=== PATIENT | female | born 1950 | race Caucasian/White ===

== ENCOUNTER 2017-08-15 14:09 | Emergency (ER) | payer OTHER ==
[2017-08-15] MEDS ORDERED: TYLENOL 325 MG PO ONE (14:47)
[2017-08-15] MEDS ORDERED: TYLENOL 325 MG ONE (14:51)
--- NOTE | 2017-08-15 14:53 | ERPHSYRPT ---
- History of Present Illness Time Seen by Provider: 08/15/17 14:40 Source: patient Exam Limitations: no limitations Patient Subjective Stated Complaint: Pt was at work and fell from standing height while doing dishes, struck in the head with a plate rack full of plates in the kitchen. C/O pain left side of head and right leg. Also of pain in bilat shoulders. Rates pain 6/10. Denies LOC. Triage Nursing Assessment: Pt alert, oriented, answers all questions appropriately. Skin pink, warm, dry. Resps non-labored. Pt able to stand and ambulate from wheelchair to bed. Steady gait noted. Area of swelling noted to left temporal region. No obvious bruising or open areas noted on skin. Swelling and bruising noted to right leg below knee in multiple areas. No obvious deformity, bleeding. + pedal pulses noted bilat. Pupils PERRLA Physician History: ABOUT 70 MINUTES AGO AT [facility] PT RAN INTO A PLATE JENNINGS WHILE WORKING AND FELL WITH RESULTANT PAIN IN THE HEAD, NECK, RIGHT KNEE AND RIGHT LEG. PT DENIES NAUSEA, CHEST PAIN, ABDOMINAL PAIN; ADMITS TO SINUS DRAINAGE FOR THE PAST 2 WEEKS. Allergies/Adverse Reactions: azithromycin [From Zithromax] Allergy (Intermediate, Verified 08/15/17 14:21) Rash Home Medications: Allopurinol 0 mg PO DAILY 08/15/17 [History] Diltiazem HCl [Cardizem Cd] 180 mg PO 08/15/17 [History] Omeprazole [Omeprazole] 1 tab PO DAILY 08/15/17 [History] Pravastatin Sodium 20 mg PO DAILY 08/15/17 [History] Immunizations Up to Date: Yes - Review of Systems Ears, Nose, & Throat: Sinus Drainage Musculoskeletal: Neck Pain, Fall, Other (RIGHT KNEE AND RIGHT LEG PAIN) Neurological: Headache All Other Systems: Reviewed and Negative - Past Medical History Pertinent Past Medical History: Yes Cardiac History: Arrhythmia, High Cholesterol GI Medical History: GERD Other Medical History: rapid heart beat, gout - Past Surgical History Past Surgical History: Yes Female Surgical History: Tubal Ligation Other Surgical History: back - Social History Smoking Status: Never smoker Exposure to second hand smoke: No Drug Use: none Patient Lives Alone: No - Female History Hx Now: No - Nursing Vital Signs Nursing Vital Signs: Initial Vital Signs Temperature 97.7 F 08/15/17 14:26 Pulse Rate 93 H 08/15/17 14:26 Respiratory Rate 16 08/15/17 14:26 Blood Pressure 146/90 08/15/17 14:26 O2 Sat by Pulse Oximetry 96 08/15/17 14:26 Pain Scale Pain Intensity 3 - Richard Coma Score Best Eye Response (Richard): (4) open spontaneously Best Verbal Response (Richard): (5) oriented Best Motor Response (Richard): (6) obeys commands Richard Total: 15 - Physical Exam General Appearance: alert Head Injury: tenderness (MILD TENDERNESS OVER A 2 CM DIAMETER EDEMATOUS NODULE ON THE SUPERIOR ASPECT OF THE LEFT SIDE OF THE OCCIPUT.) Eye Exam: PERRL/EOMI ENT Exam: airway nml, hearing grossly normal Neck Exam: trachea midline, tenderness (MILD POSTERIOR TENDERNESS WITHOUT BRUISING.) Respiratory/Chest Exam: normal breath sounds Cardiovascular Exam: normal heart sounds Gastrointestinal Exam: soft, normal bowel sounds Back Exam: No vertebral tenderness Extremity Exam: normal range of motion, tenderness (MILD TENDERNESS OVER A 2 CM BRUISE OF THE MID ASPECT OF THE RIGHT NICHOLAS) Peripheral Pulses: dorsalis-pedis (R): 2+, dorsalis-pedis (L): 2+ Neurologic Exam: alert, cooperative SpO2 Interpretation: normal SpO2: 96 Oxygen Delivery: Room Air - Course Nursing assessment & vital signs reviewed: Yes - Radiology Exams Right Knee X-ray Interpretation: Interpreted by me, No Fracture Right Lower Leg X-ray Interpretation: Interpreted by me, No Fracture - CT Exams Head CT Interpretation: Tele-radiologist Report (NORMAL HEAD/BRAIN CT.) Cervical Spine CT Interpretation: Tele-radiologist Report (NO ACUTE FINDINGS.) Ordered Tests: Active Orders 24 hr Category Date Time Status CERVICAL SPINE WO CONTRAST [CT] Stat Exams 08/15/17 15:09 Taken HEAD WITHOUT CONTRAST [CT] Stat Exams 08/15/17 14:46 Taken KNEE (3 VIEWS) Stat Exams 08/15/17 15:31 Taken LOWER LEG Stat Exams 08/15/17 14:47 Taken Medication Summary Discontinued Medications Generic Name Dose Route Start Last Admin Trade Name Freq PRN Reason Stop Dose Admin Acetaminophen 650 mg 08/15/17 14:47 08/15/17 14:53 Tylenol 325 Mg PO 08/15/17 14:48 650 mg STAT ONE Administration Acetaminophen Confirm 08/15/17 14:51 Tylenol 325 Mg Administered 08/15/17 14:52 Dose 650 mg .ROUTE .STK-MED ONE - Departure Time of Disposition: 15:55 Departure Disposition: Home Clinical Impression: FALL, HEAD CONTUSION, CERVICAL STRAIN, RIGHT LEG CONTUSION, RIGHT KNEE PAIN Condition: Stable Critical Care Time: No Referrals: BREE CABRALES MD [Primary Care Provider] - Instructions: Prevent Falls, Contusion, Closed Head Injury Additional Instructions: FOLLOW UP WITH PRIVATE DOCTOR TOMORROW. Prescriptions: Naproxen [Naprosyn] 500 mg PO Q12H PRN PRN #20 tablet PRN Reason: Pain
[2017-08-15 16:15] VITALS: BP 141/79; PULSE 89; O2SAT 95
--- NOTE | 2017-08-15 20:29 | XRAY ---
Indication: Pain following fall. Comparison: None 3 views of the right knee demonstrates mild osteopenia and minimal medial joint space narrowing. No other bony, articular, or soft tissue abnormalities.
--- NOTE | 2017-08-15 20:29 | XRAY ---
Indication: Pain following fall. Comparison: None 2 views of the right lower leg demonstrates mild osteopenia and tiny anterior medial soft tissue calcified granuloma. No other bony, articular, or soft tissue abnormalities.
--- NOTE | 2017-08-15 20:31 | XRAY ---
Indication: Pain following fall. Multiple contiguous axial images obtained through the head without contrast. Comparison: None. Normal appearing brain parenchyma, ventricles, and bony calvarium. Mild mucosal thickening of both ethmoid and right sphenoid sinuses. Mastoid air cells are clear. Impression: No acute intracranial abnormalities. Incidental paranasal sinus disease. Comment: Preliminary interpretation was made by [facility]. No critical discrepancy. CTDI 49.85
--- NOTE | 2017-08-15 20:33 | XRAY ---
Indication: Pain following fall. Multiple contiguous axial images obtained through the cervical spine. Sagittal and coronal reformatted images obtained. Comparison: None. Axial images negative for acute fracture, suspicious bony lesions, or spinal canal stenosis. Mild left C2-C3 degenerative facet hypertrophy. Sagittal and coronal reformatted images demonstrate straightening of the cervical lordosis, positional versus paraspinal spasm. Vertebral body heights and disc spaces maintained. No acute fracture, subluxation, or jumped facet. Normal-appearing craniocervical junction. Visualized noncontrasted soft tissues including lung apices unremarkable. CT head reported separately. Impression: Cervical lordotic straightening, positional versus paraspinal spasm. Left C2-C3 degenerative facet arthropathy. Negative for acute fracture/subluxation. Comment: Preliminary interpretation was made by [facility]. No critical discrepancy. CTDI 106.56
== END 2017-08-15 16:21 | disposition home or self-care (01) ==
LOC: ED 14:09
DX: S00.93XA Contusion of unspecified part of head, initial encounter (principal); S16.1XXA Strain of muscle, fascia and tendon at neck level, initial encounter; S80.11XA Contusion of right lower leg, initial encounter; M25.561 Pain in right knee; W01.198A Fall on same level from slipping, tripping and stumbling with subsequent striking against other object, initial encounter; Z79.899 Other long term (current) drug therapy; E78.00 Pure hypercholesterolemia, unspecified
CPT/HCPCS: 70450; 72125; 73562; 73590; 99284; L0120; A9270-GY

== ENCOUNTER 2024-03-23 12:07 | Day surgery (SDC) | payer MEDICARE ==
[2024-03-23] MEDS ORDERED: LIDOCAINE HCL 1% 50 MG/5 ML VL PF IJ ONE (12:08)
[2024-03-23] MEDS ORDERED: Decadron 4 MG INJ IV ONE (12:08)
[2024-03-23] MEDS ORDERED: Sodium Chloride 0.9(Preservative Free) 10 ML IJ ONE (12:08)
[2024-03-23] MEDS ORDERED: Depo-Medrol 40 MG/ML IM ONE (12:08)
[2024-03-23] MEDS ORDERED: Lactated Ringers 1,000 ML IV ONE (13:25)
[2024-03-23] MEDS ORDERED: DIPRIVAN 200 MG/20 ML IV ONE (13:44)
[2024-03-23] MEDS ORDERED: LOPRESSOR INJECTION IV ONE (13:50)
--- NOTE | 2024-03-23 15:06 | XRAY ---
Indication: Bilateral piriformis injection. Intraoperative fluoroscopy provided for 13 seconds. 3 digital spot image submitted for interpretation demonstrates posterior needle tips projecting over the expected left and right piriformis. Small amount of contrast injected for needle tip placement. Correlate with intraoperative findings/report.
--- NOTE | 2024-03-23 15:06 | XRAY ---
Indication: Caudal JOSE. Intraoperative fluoroscopy provided for 26 seconds. 3 digital spot image submitted for interpretation demonstrates caudal needle tip projecting mid sacrum. Small amount of contrast injected for needle tip placement. Correlate with intraoperative findings/report.
--- NOTE | 2024-03-23 15:34 | XRAY ---
13 seconds of fluoroscopy was used in surgery for a bilateral piriformis injection.
--- NOTE | 2024-03-23 15:34 | XRAY ---
26 seconds of fluoroscopy was used in surgery for a caudal JOSE.
== END 2024-03-23 14:17 | disposition home or self-care (01) ==
LOC: SDC-PAIN 12:07
PROVIDERS: ATTEND Psychiatry & Neurology Pain Medicine
DX: M54.16 Radiculopathy, lumbar region (principal); M79.18 Myalgia, other site
CPT/HCPCS: 20552; 62323; 72170; 72220; 77002; 77003; 99100; J1100; J2001; J2704; Q9966

== ENCOUNTER 2024-07-27 15:45 | Day surgery (SDC) | payer MEDICARE ==
[2024-07-27] MEDS ORDERED: LIDOCAINE HCL 1% AMPUL 5 ML IJ ONE (15:46)
[2024-07-27] MEDS ORDERED: BUPIVACAINE 0.5% VIAL IJ ONE (15:46)
[2024-07-27] MEDS ORDERED: Depo-Medrol 40 MG/ML IM ONE (15:46)
--- NOTE | 2024-07-27 19:38 | XRAY ---
Indication: Left SI joint. Intraoperative fluoroscopy provided for 11 seconds. Single digital spot image submitted for interpretation demonstrates posterior needle tip projecting over left SI joint. Small amount of contrast injected for needle tip placement. Correlate with intraoperative findings/report.
--- NOTE | 2024-07-28 09:07 | XRAY ---
11 seconds of fluoroscopy was used in surgery for a left sacroiliac joint injection.
== END 2024-07-27 18:10 | disposition home or self-care (01) ==
LOC: SDC-PAIN 15:45
PROVIDERS: ATTEND Psychiatry & Neurology Pain Medicine
DX: M46.1 Sacroiliitis, not elsewhere classified (principal)
CPT/HCPCS: 27096; 72170; 77002; Q9966

== ENCOUNTER 2024-08-12 09:11 | Emergency (ER) | payer MEDICARE, OTHER ==
[2024-08-12 09:25] VITALS: TEMP 97.5; O2SAT 97
--- NOTE | 2024-08-12 09:32 | ERPHSYRPT ---
- History of Present Illness Time Seen by Provider: 08/12/24 09:27 Source: patient Exam Limitations: no limitations Patient Subjective Stated Complaint: Pt states "I was washing dishes and did not see a broken plate in the sink and it got my finger." Triage Nursing Assessment: Pt presnted alert andoriented X 3, skin pwd. Pt ambulates with an upright steady gait, able to speak in clear full sentences. Pt has approx 1.5 cm laceration noted on third digit left finger. Physician History: Pt states "I was washing dishes and did not see a broken plate in the sink and it got my finger." Pt has approx 1.5 cm laceration noted on third digit left finger. Timing/Duration: today Associated Symptoms: denies symptoms Allergies/Adverse Reactions: azithromycin [From Zithromax] Allergy (Intermediate, Verified 08/15/17 14:21) Rash Home Medications: Omeprazole 1 tab PO DAILY 08/15/17 [History] Pravastatin Sodium 20 mg PO DAILY 08/15/17 [History] allopurinoL [Allopurinol] 0 mg PO DAILY 08/15/17 [History] dilTIAZem HCl [Cardizem Cd] 180 mg PO 08/15/17 [History] Hx Tetanus, Diphtheria Vaccination/Date Given: Yes Hx Influenza Vaccination/Date Given: No Hx Pneumococcal Vaccination/Date Given: No Immunizations Up to Date: No Travel Risk - International Travel Have you traveled outside of the country in past 3 weeks: No - Emerging Infectious Disease Are you exhibiting symptoms associated with any current EIDs: No - Review of Systems Constitutional: No Symptoms Eyes: No Symptoms Ears, Nose, & Throat: No Symptoms Respiratory: No Symptoms Cardiac: No Symptoms Abdominal/Gastrointestinal: No Symptoms Genitourinary Symptoms: No Symptoms Musculoskeletal: No Symptoms Skin: Other (laceration) Neurological: No Symptoms Psychological: No Symptoms - Past Medical History Pertinent Past Medical History: Yes Cardiac History: Arrhythmia, High Cholesterol GI Medical History: GERD Other Medical History: rapid heart beat, gout - Past Surgical History Past Surgical History: Yes Female Surgical History: Tubal Ligation Other Surgical History: back - Social History Smoking Status: Never smoker Exposure to second hand smoke: No Drug Use: none Patient Lives Alone: No - Social Determinants of Health Will the patient participate in the screening: Declined to provide - Nursing Vital Signs Nursing Vital Signs: Initial Vital Signs Temperature 97.5 F 08/12/24 09:19 Pulse Rate 95 H 08/12/24 09:19 Respiratory Rate 18 08/12/24 09:19 Blood Pressure 126/78 08/12/24 09:19 O2 Sat by Pulse Oximetry 97 08/12/24 09:19 Pain Scale Pain Intensity 4 - Physical Exam General Appearance: no apparent distress Eye Exam: PERRL/EOMI Ears, Nose, Throat Exam: normal ENT inspection Neck Exam: normal inspection Respiratory Exam: normal breath sounds Cardiovascular Exam: regular rate/rhythm Gastrointestinal/Abdomen Exam: soft Back Exam: normal inspection Extremity Exam: normal inspection Neurologic Exam: alert, oriented x 3, cooperative Skin Exam: normal color, laceration (1 cm superficial laceration on distal tuft of left middle finger) SpO2 Interpretation: normal SpO2: 97 O2 Delivery: Room Air Procedures - Laceration/Wound Repair Left Finger Time of Procedure: 09:29 Wound Location: Left (middle finger) Wound Length (cm): 1 Wound's Depth, Shape: superficial Wound Explored: clean Irrigated: Yes Hibiclens Prep: Yes Wound Repaired With: Steri-strips, Dermabond - Course Nursing assessment & vital signs reviewed: Yes Ordered Tests: Medication Summary Discontinued Medications Generic Name Dose Route Start Last Admin Trade Name Freq PRN Reason Stop Dose Admin Diphtheria/Tetanus/Acell Pertussis 0.5 ml 08/12/24 09:32 08/12/24 09:37 Tdap --Diph,Pertuss(Acell),Tet Vac/Pf 0.5 Ml Vial IM 08/12/24 09:33 Not Given .ONCE ONE - Progress Progress: improved Counseled pt/family regarding: diagnosis, need for follow-up Medical Desision Making - Diagnostic Testing Diagnostic test were ordered, analyzed, and reviewed by me: No - Risk of complications Minimal Risk: Minimal risk of morbidity - Departure Departure Disposition: Home Clinical Impression: Laceration of left middle finger Qualifiers: Encounter type: initial encounter Damage to nail status: without damage Foreign body presence: without foreign body Qualified Code(s): S61.213A - Laceration without foreign body of left middle finger without damage to nail, initial encounter Condition: Stable Critical Care Time: No Referrals: BREE CABRALES MD [Primary Care Provider] - Follow up/PCP as directed Instructions: Taking care of cuts, scrapes, and puncture wounds, Laceration Repair With Glue ED Additional Instructions: Discharge/Care Plan DIONNA SPENCER was seen on 08/12/24 in the Emergency Room. The patient was counseled regarding Diagnosis,Lab results, Imaging studies, need for follow up and when to return to the Emergency Room. Prescriptions given: Discharge Note I have spoken with the patient and/or caregivers. I have explained the patient's condition, diagnosis and treatment plan based on the information available to me at this time. I have answered the patient's and/or caregiver's questions and addressed any concerns. The patient and/or caregivers have as good understanding of the patient's diagnosis, condition and treatment plan as can be expected at this point. The vital signs have been stable. The patient's condition is stable and appropriate for discharge from the emergency department. The patient will pursue further outpatient evaluation with the primary care physician or other designated or consulting physician as outlined in the discharge instructions. The patient and/or caregivers are agreeable to this plan of care and follow-up instructions have been explained in detail. The patient and/or caregivers have received these instruction. The patient/and or caregivers are aware that any significant change in condition or worsening of symptoms should prompt an immediate return to this or the closest emergency department or call 911. DIONNA SPENCER was seen on 08/12/24 n the Emergency Room. At that time you were treated for an emergent condition, during your visit Laboratory, Radiology and/or other procedures may have been ordered. It is very important that you follow-up with your Primary Care Physician BREE CABRALES within the next 24-48 hours to review your Emergency Room visit and the final results of testing that was ordered. Some test results such as Urine Cultures, Blood Cultures, and other cultures if ordered will not be finalized for 24-48 hours. If you do not have a Primary Care Provider please call the medical records department at [phone] ext [phone] to obtain a copy of your results or you may sign into our patient portal to obtain these results by visiting us @ [email or web address] and completing the following steps: 1. Click on the Patient Portal link 2. Click the Patient Self Enrollment Link to complete the enrollment form and entering your 3. Once the enrollment form is completed you will receive an email with a temporary ID and password at the email address you provided. 4. Next choose a user name and password. Your user name must be at least 4 characters long and your password must be at least 4 characters long. 5. Choose a security question from the list and provide your answer to the question. If you already have signed into the Health Portal you may access your Health Care Information 08/03 by the following steps: 1. Login to our website @ [email or web address] 2. Enter your original user name and password. FAQS The [facility] Health Portal is an online tool that contains your Lab Results, Radiology Reports, Visit History, Discharge Instructions and Health Summary Lab and Radiology Results will not be available for 72 hours on the portal. The Portal is a secure site, passwords are encryted and URLs are re-written so they cannot be copied and pasted. You and authorized family members are the only ones who can access your Portal. Also there is a timeout feature that protects your information if you leave the Portal page open. If you have technical difficulty please use the Contact Us link on the page this will allow you to submit any questions you have regarding the Portal or you may contact the Medical Record Department at [phone] ext [phone].
[2024-08-12] MEDS: Adacel Vial IM ONE (09:37)
[2024-08-12 09:53] VITALS: BP 114/77; PULSE 72; RESP 18
== END 2024-08-12 09:59 | disposition home or self-care (01) ==
LOC: ED 09:11
DX: S61.213A Laceration without foreign body of left middle finger without damage to nail, initial encounter (principal); W25.XXXA Contact with sharp glass, initial encounter; Y93.G1 Activity, food preparation and clean up
CPT/HCPCS: 12001; 99282; 99283

== ENCOUNTER 2025-07-19 10:53 | Emergency (ER) | payer MEDICARE ==
[2025-07-19 11:19] VITALS: TEMP 97
--- NOTE | 2025-07-19 11:29 | ERPHSYRPT ---
- History of Present Illness Time Seen by Provider: 07/19/25 11:05 Source: patient Exam Limitations: no limitations Patient Subjective Stated Complaint: patient states she had picked up a heavy box today and now has neck and muscular pain noted to chest from picking up the heavy object Triage Nursing Assessment: patient presents to ed via private vehicle, patient able to ambulate into ed without complication, patient alert and oriented x 4, skin pwd, patient has complaints of neck pain and discomfort described as muscular pain noted to chest after picking up a heavy box, denies shortness of breath/chest pain at time of arrival Physician History: This is a frail-appearing 74-year-old white female patient who presents to the emergency department by private vehicle and is a patient of Dr. Cabrales with 1 week history of muscular neck pain after lifting up a heavy object at work she felt a pulling straining sensation and has had persistent pain in her neck with movement. She again was lifting heavy objects at her workToday and felt the same type of pulling sensation in her upper chest wall. 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 Patient does take tramadol on occasion and it is helpful but makes her kind of sleepy. Patient has a history of CHF, hyperlipidemia and gout. She did not have neck pain or chest wall pain prior to the use incidences of heavy lifting and pulling sensations. Timing/Duration: today (Lifting heavy objects at her work today), week(s) (Neck musculoskeletal pain 1 week ago) Severity: mild (Moderate) Associated Symptoms: denies symptoms Allergies/Adverse Reactions: azithromycin [From Zithromax] Allergy (Intermediate, Verified 07/19/25 11:08) Rash Home Medications: Omeprazole 1 tab PO DAILY 08/15/17 [History] Pravastatin Sodium 20 mg PO DAILY 08/15/17 [History] allopurinoL [Allopurinol] 100 mg PO DAILY 08/15/17 [History] dilTIAZem HCl [Cardizem Cd] 180 mg PO DAILY 08/15/17 [History] Furosemide [Lasix] 20 mg PO DAILY 07/19/25 [History] Potassium Chloride 8 meq PO DAILY 07/19/25 [History] Spironolactone 25 mg PO DAILY 07/19/25 [History] Hx Tetanus, Diphtheria Vaccination/Date Given: Yes Hx Influenza Vaccination/Date Given: No Hx Pneumococcal Vaccination/Date Given: No Travel Risk - International Travel Have you traveled outside of the country in past 3 weeks: No - Emerging Infectious Disease Are you exhibiting symptoms associated with any current EIDs: No - Review of Systems Constitutional: No Symptoms Eyes: No Symptoms Ears, Nose, & Throat: No Symptoms Respiratory: No Symptoms Cardiac: No Symptoms Abdominal/Gastrointestinal: No Symptoms Genitourinary Symptoms: No Symptoms Musculoskeletal: Neck Pain (Muscular strain/pain with movement), Other (Upper chest wall strain/pain with movement) Skin: No Symptoms Neurological: No Symptoms Psychological: No Symptoms Endocrine: No Symptoms Hematologic/Lymphatic: No Symptoms Immunological/Allergic: No Symptoms All Other Systems: Reviewed and Negative - Past Medical History Pertinent Past Medical History: Yes Cardiac History: Arrhythmia, High Cholesterol, Hypertension Respiratory History: COPD GI Medical History: GERD Other Medical History: rapid heart beat, gout - Past Surgical History Past Surgical History: Yes Female Surgical History: Tubal Ligation Other Surgical History: back - Social History Smoking Status: Never smoker Exposure to second hand smoke: No Drug Use: none - Social Determinants of Health Will the patient participate in the screening: Yes Do you worry about a steady place to live?: No Do you have any problems with any of the following?: No known problems In the past 12 months,have you had to go without utilities?: No Transportation Issues: No Has anyone in your support network made you feel unsafe?: No Have you or anyone in your house had to go w/o enough food: No - Nursing Vital Signs Nursing Vital Signs: Initial Vital Signs Temperature 97 F 07/19/25 10:54 Pulse Rate 85 07/19/25 10:54 Respiratory Rate 16 07/19/25 10:54 Blood Pressure 135/82 07/19/25 10:54 O2 Sat by Pulse Oximetry 99 07/19/25 10:54 Pain Scale Pain Intensity 8 - Physical Exam General Appearance: no apparent distress, alert, anxiety, thin Eye Exam: PERRL/EOMI, eyes nml inspection Ears, Nose, Throat Exam: normal ENT inspection, moist mucous membranes Neck Exam: normal inspection, supple, full range of motion, other (Bilateral paraspinous muscle tenderness to palpation. No vertebral body tenderness to palpation), No midline tenderness Respiratory Exam: normal breath sounds, chest tenderness (Upper chest wall tenderness to palpation. 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 nml as tested, nml cerebellar function, nml station & gait, sensation nml Skin Exam: normal color, warm, dry Lymphatic Exam: No adenopathy SpO2 Interpretation: normal SpO2: 99 O2 Delivery: Room Air - Course Nursing assessment & vital signs reviewed: Yes Ordered Tests: Medication Summary Generic Name Dose Route Start Last Admin Trade Name Freq PRN Reason Stop Dose Admin Acetaminophen 650 mg 07/19/25 11:23 Acetaminophen 325 Mg Tablet PO 07/19/25 11:24 STAT ONE Discontinued Medications Generic Name Dose Route Start Last Admin Trade Name Freq PRN Reason Stop Dose Admin Methylprednisolone Sodium 0 mg 07/19/25 11:22 Succinate 125 mg/ Sterile IM 07/19/25 11:23 Water 2 ml STAT ONE - Progress Progress: unchanged, pain not gone completely Progress Note: 07/19/25 11:29 My medical decision making and the assignment of low complexity of this patient's medical issue today is based on review of the patient's past medical history, reviewed the patient's medication list, reviewed patient drug allergy list, history present illness and physical findings on examination. The workup in this patient includes offering the patient muscle relaxant, steroid use. Patient desires steroid injection now but wants to avoid muscle relaxants. No radiographic or laboratory studies necessary in the workup of this patient Differential diagnosis includes but is not limited to neck pain, chest wall pain, muscle strain, neck strain Counseled pt/family regarding: diagnosis, need for follow-up Medical Desision Making - Diagnostic Testing Diagnostic test were ordered, analyzed, and reviewed by me: No - Risk of complications Low Risk: Low risk of morbidity from additional dx testing or treatment The pt has a mod risk of morbidity or mortality based on: Need for prescription drug management - Departure Departure Disposition: Home Clinical Impression: Neck muscle strain, Chest wall muscle strain Condition: Stable Critical Care Time: No Referrals: BREE CABRALES MD [Primary Care Provider, [facility]] - Follow up/PCP as directed Additional Instructions: You may alternate ice and heat to the tender areas 3 times a day for the next 3 days. Use Tylenol 650 mg every 4 hours while awake. Take the steroids as prescribed. May also massage the tender areas 2-3 times a day for the next 3 days. Use your tramadol at nighttime if needed for more significant pain. Call your primary care provider today, 07/19/2025, to make arrangements for follow-up appointment for further evaluation and management. Prescriptions: Prednisone 5 mg [Deltasone 5 mg] 5 mg PO TID #12 tablet
[2025-07-19] MEDS ORDERED: Sterile H2O 10 ml IJ ONE (11:33)
[2025-07-19] MEDS ORDERED: TYLENOL 325 MG ONE (11:33)
[2025-07-19] MEDS: solu-MEDROL 125 MG, Sterile H2O 10 ml 2 ML IM ONE (11:34)
[2025-07-19] MEDS: TYLENOL 325 MG PO ONE (11:35)
[2025-07-19 12:04] VITALS: BP 110/78; PULSE 72; RESP 18; O2SAT 98
== END 2025-07-19 12:04 | disposition home or self-care (01) ==
LOC: ED 10:53
DX: S16.1XXA Strain of muscle, fascia and tendon at neck level, initial encounter (principal); S29.011A Strain of muscle and tendon of front wall of thorax, initial encounter; X50.0XXA Overexertion from strenuous movement or load, initial encounter; Y92.129 Unspecified place in nursing home as the place of occurrence of the external cause; Y99.0 Civilian activity done for income or pay; I10 Essential (primary) hypertension; Z79.899 Other long term (current) drug therapy